=== PATIENT | female | born 1985 | race Caucasian/White ===

== ENCOUNTER 2019-04-26 20:38 | Emergency (ER) | payer OTHER ==
[~2019-04-26] VITALS: Ht 157.5 cm; Wt 59.9 kg
[2019-04-26 22:03] VITALS: Ht 157.5 cm; Wt 59.9 kg
[2019-04-27 00:04] VITALS: BP 139/88
== END 2019-04-27 00:04 | disposition home or self-care (01) ==
LOC: ED 20:38
DX: L02.511 Cutaneous abscess of right hand (principal); J45.909 Unspecified asthma, uncomplicated; G89.29 Other chronic pain; M54.9 Dorsalgia, unspecified; F17.210 Nicotine dependence, cigarettes, uncomplicated
CPT/HCPCS: J2001

== ENCOUNTER 2019-05-15 15:39 | Emergency (ER) | payer OTHER ==
[~2019-05-15] VITALS: Ht 157.5 cm; Wt 60.3 kg
[2019-05-15 15:55] VITALS: Ht 157.5 cm; Wt 60.3 kg
[2019-05-15 17:30] VITALS: BP 109/71
== END 2019-05-15 17:30 | disposition home or self-care (01) ==
LOC: ED 15:39
DX: J10.1 Influenza due to other identified influenza virus with other respiratory manifestations (principal); J45.909 Unspecified asthma, uncomplicated; M54.9 Dorsalgia, unspecified; F17.210 Nicotine dependence, cigarettes, uncomplicated
CPT/HCPCS: 87804; 99406

== ENCOUNTER 2019-06-14 13:16 | Emergency (ER) | payer OTHER ==
[~2019-06-14] VITALS: Ht 157.5 cm; Wt 52.2 kg
[2019-06-14 13:26] VITALS: BP 108/78; Ht 157.5 cm; Wt 52.2 kg
== END 2019-06-14 16:34 | disposition home or self-care (01) ==
LOC: ED 13:16
DX: S01.01XA Laceration without foreign body of scalp, initial encounter (principal); S93.402A Sprain of unspecified ligament of left ankle, initial encounter; S43.401A Unspecified sprain of right shoulder joint, initial encounter; S70.01XA Contusion of right hip, initial encounter; J45.909 Unspecified asthma, uncomplicated; F41.9 Anxiety disorder, unspecified; W18.30XA Fall on same level, unspecified, initial encounter; Y93.89 Activity, other specified; Y92.89 Other specified places as the place of occurrence of the external cause; Y99.8 Other external cause status
CPT/HCPCS: J1885